=== PATIENT | female | born 1970 | race Caucasian/White ===

== ENCOUNTER → 2018-04-29 | Outpatient (CLI) | payer OTHER ==
--- NOTE | 2018-04-29 13:27 | PCVCIMAG ---
APPROVED REPORT Study performed: 04/29/2018 09:33:17 Exam: Stress Echocardiogram Indication: Chest pain, Palpitations , Hyperlipidemia Patient Location: Echo lab Stress Nurse: Flakita Hernandez RN Status: routine Ht: 5 ft 5 in HR: 109 bpm BP: 122/80 mmHg Rhythm: Tachycardia Procedure The patient underwent an Exercise Stress Test using the Jb Protocol. Blood pressure, heart rate, and EKG were monitored. An Echocardiogram was performed by rd lab technician in four stages in quad fashion. At peak stress, four selected images were obtained and placed side by side with resting images for comparison. Stress Test Details Stress Test: Exercise stress testing was performed using a Jb protocol. HR Resting HR: 109 bpmMax Heart Rate (APMHR): 174 bpm Max HR Achieved: 184 bpmTarget HR (85% APMHR): 147 bpm % of APMHR: 105 Recovery HR: 121 bpm HR response to stress: Normal HR response to stress BP Resting BP: 122/80 mmHg Max BP: 172/80 mmHg Recovery BP: 158/80 mmHg ECG Resting ECG: Sinus Tachycardia Stress ECG: Sinus Tachycardia ST Change: Normal Arrhythmia: None Recovery ECG: Sinus Tachycardia Recovery ST Change: Normal Recovery Arrhythmia: None Clinical Reason for Termination: Maximal effort, Dyspnea Stress Symptoms: Dyspnea, Fatigue Exercise duration: 8 min 15 sec Highest Stage Achieved: Stage 3: 3.4 mph at 14% grade. Exercise capacity: 10.4 METs Overall Exercise Capacity for Age: Average Scale: Sedentary Angina Score: None Stress ECG Conclusion 1. Subjectively negative for ischemia 2. Elective cardiographic C negative for ischemia 3. Satisfactory functional capacity Pre-Stress Echo The resting Echocardiogram showed normal left ventricular contractility with an estimated Ejection Fraction of about >55%. Normal wall motion in all segments on baseline images. Post-Stress Echo The stress Echocardiogram showed normal left ventricular contractility with an estimated Ejection Fraction of about 65%. Normal augmentation of wall motion in all segments on post stress images. Clinical No clinical or ECG evidence for ischemia. Conclusion Clinical Response: Non-ischemic Exercise Capacity: Average Stress ECG Response: Non-ischemic Stress Echo Images: Non-ischemic 1. Low risk study Other Information Study Quality: Adequate <Conclusion> 1. Low risk study
== END | disposition home or self-care (01) ==
LOC: PCVCIMAG 09:22
PROVIDERS: ATTEND Internal Medicine
DX: R00.2 Palpitations (principal); R07.89 Other chest pain; E78.00 Pure hypercholesterolemia, unspecified
CPT/HCPCS: 93325; 93351